=== PATIENT | female | born 1955 | race Caucasian/White ===

== ENCOUNTER → 2017-03-07 | Outpatient (CLI) | payer OTHER ==
[~2017-03-07] MED LIST: ASPI-1471 PO; CETI-176 PO; CHOL100058 PO; LACT1CAP6 PO; MULT1TAB64 PO; VIT-7 PO; [UNRECOGNIZED DRUG - REMARK]; vitamins
== END ==
LOC: LAB 08:16
PROVIDERS: ATTEND Nurse Practitioner Family
DX: Z13.0 Encounter for screening for diseases of the blood and blood-forming organs and certain disorders involving the immune mechanism (principal); J30.9 Allergic rhinitis, unspecified; R53.82 Chronic fatigue, unspecified; R73.09 Other abnormal glucose; E78.5 Hyperlipidemia, unspecified
CPT/HCPCS: 36415; 86038; 86140; 86803

== ENCOUNTER → 2017-04-16 | Outpatient (CLI) | payer OTHER ==
--- NOTE | 2017-04-16 09:29 | RADIOLOGY IMAGING REPORT ---
FACILITY: [facility] PATIENT NAME: Cora Briscoe : 1955 MR: [id number] V: [id number] EXAM DATE: ORDERING PHYSICIAN: ELIN NEGRON TECHNOLOGIST: Location: [facility] Patient: Cora Briscoe : 1955 Visit/Account:[id number] Date of Sevice: 04/16/2017 THYROID HISTORY: Cyst seen on CT COMPARISON: None. FINDINGS: SIZE: Normal Right lobe: 4.6 x 0.9 x 1.6 cm Left lobe: 3.7 x 1 x 1.1 cm Isthmus: 1 mm PARENCHYMA: Homogeneous. NODULES: Right lobe: * There is a 6 mm cyst containing a punctate calcification in the mid right lobe. There is a 6 mm w ell-circumscribed hypoechoic nodule also in the mid right lobe Left lobe: * There is a well-circumscribed hypoechoic nodule which may contain a punctate calcification in the lower pole measuring 8 mm in diameter in the mid left lobe is a well-circumscribed 4 mm hypoechoic no dule Isthmus: * None discrete. VASCULARITY: Within normal limits. ADDITIONAL FINDINGS: None. IMPRESSION: There are subcentimeter hypoechoic thyroid nodules bilaterally REFERENCE: 2015 [place] [employer] Management Guidelines for Adult Patients with Thyroid Nodules and D ifferentiated Thyroid Cancer: The [place] [employer] Guidelines Task Force on Thyroid Nodul es and Differentiated Thyroid Cancer. SONOGRAPHIC PATTERNS: * Benign: Purely cystic nodules (no solid component); estimated risk of malignancy <1 percent; no bi opsy recommended. * Very Low Suspicion: Spongiform or partially cystic nodules without any of the sonographic features described in low, intermediate, or high suspicion patterns; estimated risk of malignancy <3 percent; consider FNA at > 2 cm (Observation without FNA is also a reasonable option). * Low Suspicion: Isoechoic or hyperechoic solid nodule, or partially cystic nodule with eccentric so lid areas, without microcalcification, irregular margin or ETE (extra-thyroidal extension), or taller than wide shape; estimated risk of malignancy 5-10 percent; recommend FNA at >1.5 cm. * Intermediate Suspicion: Hypoechoic solid nodule with smooth margins without microcalcifications, E TE (extra-thyroidal extension), or taller than wide shape; estimated risk of malignancy 10-20 percent ; recommend FNA at > 1 cm. * High Suspicion: Solid hypoechoic nodule or solid hypoechoic component of a partially cystic nodule with one or more of the following features: irregular margins (infiltrative, microlobulated), microc alcifications, taller than wide shape, rim calcifications with small extrusive soft tissue component, evidence of ETE (extra-thyroidal extension); estimated risk of malignancy >70-90 percent; recommend FNA at > 1 cm. NOTES: * Although a sonographically suspicious subcentimeter thyroid nodule without evidence of extrathyroi riley extension or sonographically suspicious lymph nodes may be observed with close sonographic follow -up rather than pursuing immediate FNA, patient age and preference may modify decision-making. A > 50% interval increase in nodule volume and/or development of new suspicious sonographic features are felt to be a valid reasons for potential re-aspiration of a nodule previously shown to have benig n FNA cytology. Report Dictated By: Gely Rios MD at 04/16/2017 9:20 AM Report E-Signed By: Gely Rios MD at 04/16/2017 9:24 AM WSN:[email or web address]
== END ==
LOC: US 02:25
PROVIDERS: ATTEND Nurse Practitioner Family
DX: E04.9 Nontoxic goiter, unspecified (principal)
CPT/HCPCS: 76536

== ENCOUNTER → 2017-04-17 | Outpatient (CLI) | payer OTHER ==
--- NOTE | 2017-04-17 11:46 | RADIOLOGY IMAGING REPORT ---
FACILITY: [facility] PATIENT NAME: Cora Briscoe : 1955 MR: [id number] V: [id number] EXAM DATE: ORDERING PHYSICIAN: ELIN NEGRON TECHNOLOGIST: Location: [facility] Patient: Cora Briscoe : 1955 Visit/Account:[id number] Date of Sevice: 04/17/2017 CAROTID HISTORY: TIA COMPARISON: August 04, 2013 FINDINGS: Grayscale, duplex and color Doppler interrogation of the extracranial carotid and vertebral arteries was performed bilateral. On the right, peak systolic velocities within the common and internal carotid arteries are 76 and 80 cm/sec respectively. There is mild intimal thickening in the right common carotid artery. Antegrade flow within the common, internal and external carotid arteries as well as vertebral artery. ICA/CCA ratio 1. On the left, peak systolic velocities within the common and internal carotid arteries are 105 and 75 cm/sec respectively. There is mild intimal thickening in the left common carotid artery. Antegrade flow within the common, internal and external carotid arteries as well as vertebral artery. ICA/CCA r atio 0.8. IMPRESSION: Mild intimal thickening in the common carotid arteries bilaterally although no hemodynamically signif icant lesions Velocity criteria are extrapolated from diameter data as defined by the Society of Radiologists in Ul trasound Consensus Conference Radiology 2003; 229;340-346 Report Dictated By: Gely Rios MD at 04/17/2017 11:40 AM Report E-Signed By: Gely Rios MD at 04/17/2017 11:43 AM WSN:[email or web address]
== END ==
LOC: US 09:21
PROVIDERS: ATTEND Nurse Practitioner Family
DX: I65.23 Occlusion and stenosis of bilateral carotid arteries (principal)
CPT/HCPCS: 93880

== ENCOUNTER → 2017-08-14 | Outpatient (CLI) | payer OTHER ==
[~2017-08-14] MED LIST changes: +ASCO-182 PO; +AZEL23SP NS; +MULT1CAP59 PO; +OMEG-11 PO
[2017-08-14 07:50] LABS: LDL CHOLESTEROL 122 mg/dl
== END ==
LOC: LAB 07:12
PROVIDERS: ATTEND Nurse Practitioner Family
DX: E78.5 Hyperlipidemia, unspecified (principal); R73.9 Hyperglycemia, unspecified; E55.9 Vitamin D deficiency, unspecified; M85.89 Other specified disorders of bone density and structure, multiple sites
CPT/HCPCS: 36415; 82040; 82247; 82306; 82310; 82374; 82435; 82465; 82565; 82947; 83036; 83718; 84075; 84132; 84155; 84295; 84450; 84460; 84478; 84520

== ENCOUNTER → 2017-11-11 | Outpatient (CLI) | payer OTHER ==
--- NOTE | 2017-11-11 11:52 | RADIOLOGY IMAGING REPORT ---
FACILITY: [facility] PATIENT NAME: Cora Briscoe : 1955 MR: [id number] V: [id number] EXAM DATE: ORDERING PHYSICIAN: ELIN NEGRON TECHNOLOGIST: Location: [facility] Patient: Cora Briscoe : 1955 Visit/Account:[id number] Date of Sevice: 11/11/2017 THYROID HISTORY: Thyroid nodules follow-up COMPARISON: The 2017 FINDINGS: SIZE: Normal. Right lobe: 4.7 x 1.3 x 1.3 cm Left lobe: 3.9 x 1.2 x 1.3 cm Isthmus: 2.5 mm PARENCHYMA: Homogeneous. NODULES: Right lobe: * There is a 6 mm cyst with punctate calcination in the mid right lobe unchanged Left lobe: * There is a 7.2 mm well-circumscribed hypoechoic nodule inferior aspect of the left lobe. In the m id left lobe there is a well-circumscribed hypoechoic nodule measuring 3.1 mm in diameter. These zohaib ear unchanged Isthmus: * None discrete. VASCULARITY: Within normal limits. ADDITIONAL FINDINGS: None. IMPRESSION: Subcentimeter left-sided thyroid nodules and subcentimeter right thyroid cyst appears similar to the prior study REFERENCE: 2015 [place] [employer] Management Guidelines for Adult Patients with Thyroid Nodules and D ifferentiated Thyroid Cancer: The [place] [employer] Guidelines Task Force on Thyroid Nodul es and Differentiated Thyroid Cancer. SONOGRAPHIC PATTERNS: * Benign: Purely cystic nodules (no solid component); estimated risk of malignancy <1 percent; no bi opsy recommended. * Very Low Suspicion: Spongiform or partially cystic nodules without any of the sonographic features described in low, intermediate, or high suspicion patterns; estimated risk of malignancy <3 percent; consider FNA at > 2 cm (Observation without FNA is also a reasonable option). * Low Suspicion: Isoechoic or hyperechoic solid nodule, or partially cystic nodule with eccentric so lid areas, without microcalcification, irregular margin or ETE (extra-thyroidal extension), or taller than wide shape; estimated risk of malignancy 5-10 percent; recommend FNA at >1.5 cm. * Intermediate Suspicion: Hypoechoic solid nodule with smooth margins without microcalcifications, E TE (extra-thyroidal extension), or taller than wide shape; estimated risk of malignancy 10-20 percent ; recommend FNA at > 1 cm. * High Suspicion: Solid hypoechoic nodule or solid hypoechoic component of a partially cystic nodule with one or more of the following features: irregular margins (infiltrative, microlobulated), microc alcifications, taller than wide shape, rim calcifications with small extrusive soft tissue component, evidence of ETE (extra-thyroidal extension); estimated risk of malignancy >70-90 percent; recommend FNA at > 1 cm. NOTES: * Although a sonographically suspicious subcentimeter thyroid nodule without evidence of extrathyroi riley extension or sonographically suspicious lymph nodes may be observed with close sonographic follow -up rather than pursuing immediate FNA, patient age and preference may modify decision-making. A > 50% interval increase in nodule volume and/or development of new suspicious sonographic features are felt to be a valid reasons for potential re-aspiration of a nodule previously shown to have benig n FNA cytology. Report Dictated By: Gely Rios MD at 11/11/2017 11:41 AM Report E-Signed By: Gely Rios MD at 11/11/2017 11:48 AM WSN:[email or web address]
== END ==
LOC: US 01:07
PROVIDERS: ATTEND Nurse Practitioner Family
DX: E04.2 Nontoxic multinodular goiter (principal)
CPT/HCPCS: 76536

== ENCOUNTER → 2018-03-02 | Outpatient (CLI) | payer OTHER ==
[2018-03-02 07:35] LABS: LDL CHOLESTEROL 61 mg/dl
== END ==
LOC: LAB 06:38
PROVIDERS: ATTEND Nurse Practitioner Family
DX: Z00.00 Encounter for general adult medical examination without abnormal findings (principal); E78.5 Hyperlipidemia, unspecified; R73.9 Hyperglycemia, unspecified
CPT/HCPCS: 36415; 82040; 82247; 82310; 82374; 82435; 82465; 82565; 82947; 83036; 83718; 84075; 84132; 84155; 84295; 84450; 84460; 84478; 84520

== ENCOUNTER → 2018-03-11 | Outpatient (CLI) | payer OTHER ==
--- NOTE | 2018-03-11 09:15 | RADIOLOGY IMAGING REPORT ---
FACILITY: [facility] PATIENT NAME: Cora Briscoe : 1955 MR: [id number] V: [id number] EXAM DATE: ORDERING PHYSICIAN: ELIN NEGRON TECHNOLOGIST: Location: [facility] [place] Patient: Cora Briscoe : 1955 Visit/Account:[id number] Date of Sevice: 03/11/2018 BONE DENSITY DEXA Scan Clinical history: Osteopenia. Comparison: DEXA scan from 11/19/2010. LUMBAR SPINE: The bone mineral density (BMD) measured from L1-L4 correlates with a Z-score 0.9 and a T-score of -0 .7 which is low normal as defined by the World Health Organization. The corresponding risk of fractu re in the lumbar spine is slightly increased between 1-2 times compared with a young adult reference population. This value has decreased by -15.8 % since the prior study. More than 5% change is consi dered significant. HIP: Bone mineral density (BMD) measured in the Left total hip region correlates with a Z-score -0.2 and a T-score of -1.4 which is osteopenia as defined by the World Health Organization. The corresponding risk of fracture in the hip is increased nearly 3 times compared with a young adult reference populat ion. This value has decreased by -10.1 % since the prior study. More than 5% change is considered si gnificant. Bone mineral density (BMD) measured in the Femoral Neck region measures 0.871 g/cm2. T score 1.2. Ost eopenia. Fracture risk increased between 2-3 times IMPRESSION: 1. Lumbar spine: Low normal. There has been significant decrease in the bone mineral density since the previous exam. 2. Left Total Hip: Osteopenia. There has been significant decrease in the bone mineral density sinc e the previous exam. 3. Femoral Neck: Bone Mineral Density is 0.871 g/cm2 . Osteopenia The next DEXA scan of this patient should include the following sites: L1-L4 and the left hip. FRAX? WHO Fracture Risk Assessment Tool link: <http://www.shef.ac.uk/FRAX/tool.jsp?[email or web address]> PLEASE NOTE: 1) The World Health Organization defines low BMD as follows: T-score Normal > -1 Osteopenia < -1 and > -2.5 Osteoporosis < -2.5 without fractures Established osteoporosis < -2.5 with fractures 2) In general, you may wish to consider: Diagnosis Treatment Follow-up DEXA Normal BMD Prevention 2-3 years Osteopenia Prevention/therapy 1-2 years Osteoporosis Therapy Yearly 3) Fracture risk estimated from the T-score is more accurate for vertebral fractures (often spontane ous) than for hip fractures. Report Dictated By: Kayden Sarkar MD at 03/11/2018 9:07 AM Report E-Signed By: Kayden Sarkar MD at 03/11/2018 9:10 AM WSN:[id number]
== END ==
LOC: RAD 00:29
PROVIDERS: ATTEND Nurse Practitioner Family
DX: M85.88 Other specified disorders of bone density and structure, other site (principal)
CPT/HCPCS: 77080